=== PATIENT | female | born 1985 | race Caucasian/White ===

== ENCOUNTER 2018-01-01 04:07 | Emergency (ER) | payer OTHER ==
[~2018-01-01] VITALS: Ht 162.6 cm; Wt 63.0 kg
[2018-01-01 04:07] VITALS: BP_SYST 124
[2018-01-01 04:35] VITALS: BP_SYST 118
== END 2018-01-01 04:32 ==
LOC: SED 04:07
DX: Z04.1 Encounter for examination and observation following transport accident (principal); R03.0 Elevated blood-pressure reading, without diagnosis of hypertension; V89.2XXA Person injured in unspecified motor-vehicle accident, traffic, initial encounter; Y93.89 Activity, other specified; Y92.488 Other paved roadways as the place of occurrence of the external cause; Y99.8 Other external cause status
CPT/HCPCS: 99283